=== PATIENT | female | born 1940 | race Caucasian/White ===

== ENCOUNTER 2018-01-18 07:56 | Emergency (ER) | payer MEDICARE, BC ==
[~2018-01-18] VITALS: Ht 152.4 cm; Wt 49.9 kg
[~2018-01-18 07:56] MED LIST: ACETAMINOPHEN-1 EAC1 PO; ADULT LOW DOSE81 MG PO; BENADRYL ALLERG25 MG PO; BENADRYL25 MG PO; BUSPIRONE HCL10 MG PO; BYSTOLIC10 MG PO; COZAAR 25 MG TA25 MG PO; CRESTOR; CRESTOR20 MG PO; CYMBALTA30 MG PO; DEPAKOTE ER500 MG PO; EPINEPHRIN0.3 MG/0.1 IM; LAMICTAL 25 MG25 M1 PO; LIPITOR40 MG PO; MEDROLDOSEPACK PO; PEPCID AC20 M1 PO; PEPCID40 MG PO; PREDNISONE50 MG PO; PROAIR HFA8.5 GM IH; PROMETHAZINE-C120 ML PO; PROTONIX 20 MG20 MG PO; TRICOR; TRICOR145 MG PO; ZOFRAN4 MG PO
[2018-01-18] MEDS ORDERED: LISINOPRIL20 MG PO (08:11)
[2018-01-18] MEDS ORDERED: TIROSINT25 MCG PO (08:11)
[2018-01-18] MEDS ORDERED: ZYRTEC10 M5 PO (08:12)
[2018-01-18] MEDS ORDERED: MEDROLDOSEPACK PO (08:18)
[2018-01-18] MEDS ORDERED: PEPCID20 MG PO (08:18)
[2018-01-18 08:34] VITALS: BP 154/70
== END 2018-01-18 08:35 | disposition home or self-care (01) ==
LOC: M.ERS 07:56
DX: L50.9 Urticaria, unspecified (principal); T78.49XA Other allergy, initial encounter; F31.9 Bipolar disorder, unspecified; Z91.041 Radiographic dye allergy status; Z88.8 Allergy status to other drugs, medicaments and biological substances; Z88.0 Allergy status to penicillin; Z88.5 Allergy status to narcotic agent; X58.XXXA Exposure to other specified factors, initial encounter

== ENCOUNTER 2018-09-19 17:36 | Emergency (ER) | payer MEDICARE, BC ==
[~2018-09-19] VITALS: Ht 152.4 cm; Wt 59.0 kg
[~2018-09-19 17:36] MED LIST changes: +LISINOPRIL20 MG PO; +PEPCID20 MG PO; +TIROSINT25 MCG PO; +ZYRTEC10 M5 PO
[2018-09-19] MEDS ORDERED: MAGOX 400400 MG PO (18:03)
[2018-09-19] MEDS ORDERED: METOPROLOL SUC100 MG PO (18:03)
[2018-09-19] MEDS ORDERED: VITAMIN D2000 UNIT PO (18:04)
[2018-09-19 18:29] LABS: ABSOLUTE BASOPHILS 0.1 thou/uL (0.0-0.2); ABSOLUTE EOSINOPHILS 0.2 thou/uL (0.0-0.7); ABSOLUTE MONOCYTES 0.9 thou/uL (0.0-1.2); ABSOLUTE NEUTROPHILS 5.3 thou/uL (1.6-8.1); BASOPHILS 1.1 %; EOSINOPHILS 2.1 %; HEMATOCRIT 38.5 % (37.0-47.0); HEMOGLOBIN 12.4 gm/dL (12.0-15.0); LYMPHOCYTES 23.3 %; MCH 26.3 pg (26.0-34.0); MCHC 32.2 g/dL (28.0-37.0); MCV 81.6 fL (80.0-100.0); MONOCYTES 10.5 %; MPV 8.5 fl. (7.2-11.1); NUCLEATED RBCS 0 /100WBC; PLATELET COUNT* 240 thou/uL (150-400); RBC 4.72 mil/uL (4.20-5.00); RDW-CV 15.3 % (10.5-14.5); WBC 8.4 thou/uL (4.0-11.0)
[2018-09-19] MEDS ORDERED: AMLODIPINE BESYL5 M1 PO (18:34)
[2018-09-19 18:37] LABS: ANION GAP 7 mmol/L (7-16); BUN 14 mg/dL (7-18); CALCIUM 9.1 mg/dL (8.5-10.1); CHLORIDE 105 mmol/L (98-107); CO2 30 mmol/L (21-32); CREATININE 0.6 mg/dL (0.6-1.3); GLUCOSE 86 mg/dL (70-99); POTASSIUM 3.5 mmol/L (3.5-5.1); SODIUM 142 mmol/L (136-145)
[2018-09-19 18:38] LABS: APTT 26.1 Seconds (25.0-31.3); PROTIME 10.5 Seconds (9.20-11.50)
[2018-09-19 18:44] LABS: ALBUMIN 3.2 g/dL (3.4-5.0); ALKALINE PHOSPHATASE 93 U/L (46-116); SGOT 21 U/L (15-37); SGPT 27 U/L (30-65); TOTAL BILIRUBIN 0.6 mg/dL (<0.1-1.0); TOTAL PROTEIN 6.7 g/dL (6.4-8.2); TROPONIN-I LEVEL <0.06 ng/mL (<0.06)
[2018-09-19 19:56] LABS: ESR (SEDRATE) 12 mm/hr (0-30)
[2018-09-19 20:33] LABS: URINE BILIRUBIN NEGATIVE (Negative); URINE BLOOD 1+ (Negative); URINE CLARITY CLEAR; URINE COLOR YELLOW; URINE GLUCOSE-RANDOM NEGATIVE (Negative); URINE KETONES NEGATIVE (Negative); URINE LEUKOCYTES-REFLEX NEGATIVE (Negative); URINE NITRITE-REFLEX NEGATIVE (Negative); URINE PROTEIN NEGATIVE (Negative); URINE SPECIFIC GRAVITY 1.015 (1.005-1.030); URINE UROBILINOGEN 0.2 E.U./dl (0.2-1.0)
[2018-09-19 20:41] LABS: BACTERIA-REFLEX None Seen /HPF (None Seen); CASTS None Seen /LPF (None Seen); CRYSTALS None Seen /LPF (None Seen); SQUAMOUS NONE SEEN /LPF (0-3); URINE RBC None Seen /HPF (0-2); URINE WBC-REFLEX None Seen /HPF (0-5)
[2018-09-19] MEDS ORDERED: PHENERGAN 25 MG25 M1 PO (21:16)
[2018-09-19] MEDS ORDERED: IBUPROFEN 600600 M1 PO (21:16)
[2018-09-19 21:40] VITALS: BP 140/72
--- NOTE | 2018-09-20 12:24 | EKG ---
[place] [address] ELECTROCARDIOGRAM REPORT Name: BRYAN ABRAHAM Room: [facility]#: [id number] Admission: 09/19/18 Attend Phys: Discharge: 09/19/18 Date of : 44 Report #: [id number] THIS REPORT FOR: //name// [facility] ED Test Date: 2018-09-19 Test Time: 18:26:09 Pat Name: BRYAN ABRAHAM Department: Room: Gender: F [employer] Matcher: Onel BURNS : 1940 Requested By: Kajal Davison Order Number: [id number] MD: Fernando Flores Measurements Intervals [place] Rate: 53 P: 49 [place]: 149 QRS: -34 QRSD: 93 T: 37 QT: 528 QTc: 496 Interpretive Statements Sinus bradycardia left axis Atrial premature complex Probable left atrial enlargement poor r wave progression Compared to ECG 03/02/2015 07:01:50 Atrial premature complex(es) now present Electronically Signed On 09-20-2018 12:23:59 [employer] by Fernando Flores [email or web address] <ELECTRONICALLY SIGNED> By: Fernando Flores MD, [facility] 09/20/18 1223 1826 182 Fernando Flores MD, [facility] /EPI
== END 2018-09-19 21:49 | disposition home or self-care (01) ==
LOC: M.ERS 17:36
PROVIDERS: Nurse Practitioner Family
DX: R51 Headache (principal); F31.9 Bipolar disorder, unspecified; Z88.0 Allergy status to penicillin; Z88.5 Allergy status to narcotic agent; Z91.041 Radiographic dye allergy status; Z88.8 Allergy status to other drugs, medicaments and biological substances; Z86.73 Personal history of transient ischemic attack (TIA), and cerebral infarction without residual deficits; Z79.899 Other long term (current) drug therapy

== ENCOUNTER → 2018-12-10 | Outpatient (CLI) | payer MEDICARE, BC ==
[~2018-12-10] MED LIST changes: +AMLODIPINE BESYL5 M1 PO; +IBUPROFEN 600600 M1 PO; +MAGOX 400400 MG PO; +METOPROLOL SUC100 MG PO; +PHENERGAN 25 MG25 M1 PO; +VITAMIN D2000 UNIT PO
== END ==
LOC: M.RAD 10:50
DX: M43.26 Fusion of spine, lumbar region (principal); R06.2 Wheezing; Z95.5 Presence of coronary angioplasty implant and graft